=== PATIENT | male | born 1995 | race Caucasian/White ===

== ENCOUNTER 2020-03-28 13:59 | Outpatient (CLI) | payer OTHER, SELFPAY ==
--- NOTE | ~2020-03-28 | XR_ITS ---
EXAMINATION: XR chest 2V DATE: 03/28/2020 14:13 INDICATION: Cough. TECHNIQUE: Frontal and lateral views of the chest were obtained. COMPARISON: Chest 2 views 12/27/2017 FINDINGS: The chest demonstrates clear lungs without pneumonia, pleural effusion, or pneumothorax. Th e heart size is normal. IMPRESSION: 1. No acute cardiopulmonary disease. Reviewed, dictated and finalized at location A. [employer]
== END 2020-03-28 14:00 | disposition home or self-care (01) ==
PROVIDERS: PCP Emergency Medicine; Visit Provider Emergency Medicine
DX: R05 Cough (principal); R07.89 Other chest pain
CPT/HCPCS: 71046